=== PATIENT | female | born 1965 | race Asian ===

== ENCOUNTER 2021-04-15 15:33 | Inpatient (IN) | payer OTHER ==
[~2021-04-15] VITALS: Ht 157.5 cm; Wt 49.8 kg
[2021-04-15] MEDS ORDERED: SODIUM CHLORIDE 0.9% 1,000 ML IV ONE ×2 (16:00)
[2021-04-15 16:23] LABS: Basophils # (auto) 0 10 ^3/uL (0-0.2); Eosinophils # (auto) 0.1 10 ^3/uL (0-0.8); Hematocrit 20.7 % (36.0-46.0); Lymphocytes # (auto) 1.2 10 ^3/uL (0.4-5.4); Monocytes # (auto) 0.4 10 ^3/uL (0-1.3); Nucleated Red Blood Cells % 0.1 %; White Blood Cell 5.8 10^3/uL (4.4-10.8)
[2021-04-15 16:26] LABS: Basophils % (auto) 0.5 % (0.0-2.0); Eosinophils % (auto) 1.3 % (0.0-7.0); Hemoglobin 7.1 g/dL (12.2-16.2); Lymphocytes % (auto) 21.6 % (10.0-50.0); Mean Corpuscular Hemoglobin 30.8 pg (28.0-32.0); Mean Corpuscular Hgb Conc. 34.2 g/dL (32.0-36.0); Mean Corpuscular Volume 90.2 fL (80.0-100.0); Monocytes % (auto) 6.4 % (0.0-12.0); Neutrophils % (auto) 70.2 % (37.0-80.0); Red Cell Distribution Width 14.8 % (11.8-14.3)
[2021-04-15 16:28] LABS: Urine WBC None Seen /hpf (0 - 5)
[2021-04-15 16:36] LABS: Urine Bacteria NONE SEEN /hpf (None Seen); Urine Blood Negative /uL (Negative); Urine Specific Gravity 1.002 (1.001-1.035)
[2021-04-15 16:39] LABS: INR 0.98 (0.9-1.15); Partial Thromboplastin Time 22.5 sec (23.6-33.0)
[2021-04-15 16:41] LABS: Albumin 3.4 g/dL (3.4-5.0); Anion Gap 5 (5-15); Blood Urea Nitrogen 10 mg/dL (7-18); Calcium 8.4 mg/dL (8.5-10.1); Carbon Dioxide 27 mmol/L (21-32); Chloride 109 mmol/L (98-107); Glucose 107 mg/dL (74-106); Potassium 3.2 mmol/L (3.5-5.1); Sodium 141 mmol/L (136-145)
[2021-04-15 16:43] LABS: Alanine Aminotransferase 26 U/L (13-56); Aspartate Aminotransferase 12 U/L (15-37); BUN/Creatinine Ratio 15.2; GFR African American 119 mL/min; GFR Non-African American 98 mL/min
[2021-04-15 16:47] LABS: Alkaline Phosphatase 73 U/L (45-117); Bilirubin, Total 0.3 mg/dL (0.2-1.0)
[2021-04-15] MEDS ORDERED: hydrALAZINE HCL 20 MG/ML VL IV PRN (19:30)
[2021-04-15] MEDS ORDERED: ACETAMINOPHEN 500 MG TAB PO PRN (19:30)
[2021-04-15] MEDS ORDERED: ONDANSETRON HCL 4 MG/2 ML VIAL IV PRN (19:30)
[2021-04-15] MEDS ORDERED: LORazepam 0.5 MG TAB PO PRN (19:30)
[2021-04-15] MEDS ORDERED: NITROGLYCERIN 0.4 MG SL TAB SL PRN (19:30)
[2021-04-15] MEDS ORDERED: MORPHINE SULF INJ 2 MG/ML SYRINGE 1ML IV PRN ×2 (19:30)
[2021-04-15] MEDS ORDERED: HYDROcodone-ACET 5/325MG TAB PO PRN (19:30)
[2021-04-15] MEDS ORDERED: AMLO-489 PO (21:47)
[2021-04-15] MEDS ORDERED: ASPI-325 PO (21:47)
[2021-04-15] MEDS ORDERED: SUCR1TAB22 PO (21:47)
[2021-04-15] MEDS ORDERED: ATOR20TA PO (21:47)
[2021-04-15] MEDS ORDERED: FAMO-12 PO (21:47)
[2021-04-15] MEDS ORDERED: PANT40TA57 PO (21:47)
[2021-04-15 22:00] VITALS: BP 115/67
[2021-04-15] MEDS: PANTOPRAZOLE 40 MG/10 ML VIAL INJ IV SCH (23:14)
[2021-04-15 23:52] VITALS: BP 96/54
[2021-04-16] VITALS (7 sets, daily range): BP systolic 101–121; BP diastolic 62–77
[2021-04-16] MEDS: SOD CHL 0.9%/ KCL 20MEQ 1,000 ML IV SCH ×3 (01:49→18:34)
[2021-04-16 07:28] LABS: Basophils # (auto) 0 10 ^3/uL (0-0.2); Eosinophils # (auto) 0.2 10 ^3/uL (0-0.8); Hemoglobin 8.3 g/dL (12.2-16.2); Lymphocytes # (auto) 1.3 10 ^3/uL (0.4-5.4); Mean Corpuscular Hemoglobin 30.1 pg (28.0-32.0); Nucleated Red Blood Cells % 0.1 %
[2021-04-16 07:31] LABS: Basophils % (auto) 0.3 % (0.0-2.0); Eosinophils % (auto) 2.6 % (0.0-7.0); Lymphocytes % (auto) 18.2 % (10.0-50.0); Mean Corpuscular Hgb Conc. 33.4 g/dL (32.0-36.0); Monocytes # (auto) 0.3 10 ^3/uL (0-1.3); Monocytes % (auto) 4.6 % (0.0-12.0); Neutrophils # (auto) 5.5 10 ^3/uL (1.6-8.6); Neutrophils % (auto) 74.3 % (37.0-80.0); Red Blood Cells 2.78 10^6/uL (4.0-5.20); Red Cell Distribution Width 15.1 % (11.8-14.3); White Blood Cell 7.3 10^3/uL (4.4-10.8)
[2021-04-16] MEDS: PANTOPRAZOLE 40 MG/10 ML VIAL INJ IV SCH ×2 (08:34→21:40)
[2021-04-17 05:00] VITALS: BP 113/67
[2021-04-17 05:53] LABS: Hematocrit 22.8 % (36.0-46.0)
[2021-04-17 06:06] LABS: Magnesium 2.5 mg/dL (1.6-2.6)
[2021-04-17] MEDS: SOD CHL 0.9%/ KCL 20MEQ 1,000 ML IV SCH (08:27)
[2021-04-17] MEDS: PANTOPRAZOLE 40 MG/10 ML VIAL INJ IV SCH (08:28)
[2021-04-17 09:00] VITALS: BP 123/80
[2021-04-17] MEDS ORDERED: diphenhdrAMINE HCL 50 MG/1 ML VL ONE (10:06)
[2021-04-17] MEDS ORDERED: LIDOCAINE VISCOUS 2% 15ML UD ONE (10:06)
[2021-04-17] MEDS ORDERED: PANT40TA2 PO (11:29)
[2021-04-17] MEDS ORDERED: SOD CHL 0.9%/ KCL 20MEQ 1,000 ML IV SCH (11:30)
[2021-04-17 13:00] VITALS: BP 112/69
[2021-04-17] MEDS: fentaNYL CITRATE 100 MCG/2 ML VL ONE ×2 (16:33→16:36)
[2021-04-17] MEDS: MIDAZOLAM HCL 5 MG/ML-1ML VIAL ONE ×2 (16:33→16:36)
[2021-04-17 17:00] VITALS: BP 104/57
[2021-04-17 17:20] VITALS: BP 102/61
[2021-04-18] MEDS ORDERED: SUCR1TAB22 PO (13:50)
== END 2021-04-17 20:03 | disposition home or self-care (01) | DRG 378 ==
LOC: ER 15:33 → TELE 19:20 → TELE-CENTR 20:30
PROVIDERS: ADMIT Nurse Practitioner Acute Care; ATTEND Internal Medicine
PROC: 30230N1 Transfusion of Nonautologous Red Blood Cells into Peripheral Vein, Open Approach (ICD-10-PCS; principal; 2021-04-15)
PROC: 0DB98ZX Excision of Duodenum, Via Natural or Artificial Opening Endoscopic, Diagnostic (ICD-10-PCS; 2021-04-17)
PROC: 0DB68ZX Excision of Stomach, Via Natural or Artificial Opening Endoscopic, Diagnostic (ICD-10-PCS; 2021-04-17)
DX: K29.01 Acute gastritis with bleeding (principal); D62 Acute posthemorrhagic anemia; I10 Essential (primary) hypertension; Z20.822 Contact with and (suspected) exposure to COVID-19; E87.6 Hypokalemia; K44.9 Diaphragmatic hernia without obstruction or gangrene; Z79.899 Other long term (current) drug therapy
CPT/HCPCS: 36415; 43239; 71046; 80053; 81001; 82270; 83735; 84132; 84443; 84484; 85014; 85018; 85025; 85610; 85730; 86850; 86900; 86901; 86920; 87426; 96361; 96374; C9113; G0378; J2250